=== PATIENT | male | born 2000 | race African-American/Black ===

== ENCOUNTER 2022-11-12 09:08 | Emergency (ER) | payer MEDICAID, OTHER ==
[~2022-11-12] VITALS: Ht 182.9 cm; Wt 102.0 kg
[2022-11-12 09:54] LABS: Hematocrit 45.4 % (41.0-53.0); Hemoglobin 15.4 g/dL (13.5-17.5); Mean Corpuscular Hemoglobin 27.4 pg (28.0-32.0); Mean Corpuscular Hgb Conc. 33.9 g/dL (32.0-36.0); Mean Corpuscular Volume 80.9 fL (80.0-100.0); Red Blood Cells 5.61 10^6/uL (4.5-5.90); Red Cell Distribution Width 12.8 % (11.8-14.3); White Blood Cell 4.5 10^3/uL (4.4-10.8)
[2022-11-12 10:07] LABS: Basophils % (manual) 0 (0.0-2.0); Blast Cells 0; Metamyelocytes % 0; Myelocytes % 0; Promyelocytes % 0; Reactive Lymphocytes 0
[2022-11-12 10:11] LABS: Potassium 3.9 mmol/L (3.5-5.1)
[2022-11-12 10:16] LABS: Urine Bacteria NONE SEEN /hpf (None Seen); Urine Blood TRACE /uL (Negative); Urine Mucus FEW (None Seen); Urine Specific Gravity 1.024 (1.001-1.035); Urine WBC 2 /hpf (0 - 3)
[2022-11-12 10:19] LABS: INR 0.97 (0.9-1.15); Partial Thromboplastin Time 28.4 sec (24.6-33.4)
[2022-11-12 10:20] LABS: Albumin 3.5 g/dL (3.4-5.0); BUN/Creatinine Ratio 5.7 (10.0-20.0); Bilirubin, Total 0.5 mg/dL (0.2-1.0); Total Protein 7.5 g/dL (6.4-8.2)
[2022-11-12 11:26] LABS: Band Neutrophils % (manual) 13; Eosinophils % (manual) 3 (0-7); Lymphocytes % (manual) 26 (10.0-50.0)
[2022-11-12 11:27] LABS: Monocytes % (manual) 27 (0-12)
[2022-11-12] MEDS ORDERED: DOCU-94 PO (12:02)
[2022-11-12 12:20] VITALS: BP 142/80
== END 2022-11-12 12:25 | disposition home or self-care (01) ==
LOC: ER 09:08
DX: K59.00 Constipation, unspecified (principal); K60.2 Anal fissure, unspecified; F12.10 Cannabis abuse, uncomplicated; Z79.01 Long term (current) use of anticoagulants
CPT/HCPCS: 36415; 80053; 81001; 85007; 85027; 85610; 85730